=== PATIENT | male | born 1965 | race Caucasian/White ===

== ENCOUNTER 2016-09-05 18:50 | Emergency (ER) | payer SELFPAY ==
--- NOTE | 2016-09-05 19:16 | Emergency Department Record ---
History of Present Illness - General Chief Complaint: Alcohol Intoxication Stated Complaint: ETOH Time Seen by Provider: 09/05/16 19:08 Source: Patient, Police Mode of Arrival: EMS Limitations: No limitations - History of Present Illness Initial Comments: 51 yo male presents in law enforcement custody. He was pulled over for suspected drinking and driving. Upon arrest the patient states for the last few hours he has not felt normal beyond the alcohol. He states he feels out of it. No new vision changes, no weakness on one side or the other. No fevers. No trauma. No sweating. He is under a lot of stress at home. He reports a history of prior stroke and HTN. The stroke involved his vision. No vision changes today. He admits to drinking. He has had a cough for about 2 weeks. Productive at times. MD Complaint: Alcohol intoxication Last Drink: Unknown Chronic Alcohol Use: Yes Recent Trauma: No Associated Symptoms: Denies other symptoms Treatments Prior to Arrival: None - Kermit Coma Scale Eye Response: (4) Open spontaneously Motor Response: (6) Obeys commands Verbal Response: (5) Oriented Kermit Total: 15 - Related Data Home Medications Medication Instructions Recorded Confirmed Last Taken Metoprolol Tartrate [Metoprolol 50 mg PO BID 10/25/15 09/05/16 10/25/15 Tartrate] Gabapentin [Neurontin] 300 mg PO DAILY 11/04/15 09/05/16 Unknown Meloxicam [Mobic] 15 mg PO BID 11/04/15 09/05/16 Unknown Allergies Allergy/AdvReac Type Severity Reaction Status Date / Time No Known Drug Allergies Allergy Verified 09/05/16 18:56 Travel Screening - Travel/Exposure Within Last 30 Days Have you traveled within the last 30 days?: No Review of Systems Constitutional: Denies: Chills, Fever, Malaise, Night sweats, Weakness Eyes: Denies: Eye discharge, Eye pain, Photophobia, Vision change ENT: Denies: Congestion, Throat pain Respiratory: Reports: Cough (few weeks). Denies: Dyspnea, Hemoptysis, Stridor, Wheezes Cardiovascular: Denies: Chest pain, Palpitations, Syncope Endocrine: Denies: Fatigue Gastrointestinal: Denies: Abdominal pain, Diarrhea, Hematemesis, Hematochezia, Nausea, Vomiting Genitourinary: Denies: Dysuria, Frequency, Hematuria, Urgency Musculoskeletal: Denies: Arthralgia, Back pain, Joint swelling, Myalgia, Neck pain Skin: Denies: Bruising, Change in color, Rash Neurological: Denies: Confusion, Headache, Numbness, Tingling, Tremors, Vertigo , Weakness Psychiatric: Reports: Anxiety Hematological/Lymphatic: Denies: Blood Clots, Easy bleeding, Easy bruising, Swollen glands Past Medical History - SOCIAL HISTORY Smoking Status: Current every day smoker Alcohol Use: Heavy Drug Use: None - RESPIRATORY Hx Respiratory Disorders: Yes Hx COPD: Yes - CARDIOVASCULAR Hx Cardio Disorders: Yes Hx Hypertension: Yes - NEURO Hx Neuro Disorders: No - GI Hx GI Disorders: No - Hx Genitourinary Disorders: No - ENDOCRINE Hx Endocrine Disorders: No - MUSCULOSKELETAL Hx Musculoskeletal Disorders: Yes Comment:: neck pain - PSYCH Hx Psych Problems: No - HEMATOLOGY/ONCOLOGY Hx Hematology/Oncology Disorders: No Family Medical History Any Significant Family History?: Yes Family Hx Comment (NOT TO BE USED IN PLACE OF ITEMS BELOW): Father- Aneurysm Hx Diabetes: Mother Hx Heart Disease: Father Physical Exam - General General Appearance: Alert, Oriented x3, Cooperative, No acute distress Limitations: No limitations - Head Head exam: Atraumatic, Normal inspection - Eye Eye exam: Normal appearance, PERRL. negative: Conjunctival injection, Periorbital swelling - ENT ENT exam: Normal exam, Mucous membranes moist Ear exam: Normal external inspection Nasal Exam: Normal inspection Mouth exam: Normal external inspection Teeth exam: Normal inspection Throat exam: Normal inspection - Neck Neck exam: Normal inspection, Full ROM. negative: Tenderness - Respiratory Respiratory exam: Normal lung sounds bilaterally. negative: Accessory muscle use, Respiratory distress, Rhonchi, Stridor, Wheezes - Cardiovascular Cardiovascular Exam: Regular rate, Normal rhythm, Normal heart sounds - GI/Abdominal GI/Abdominal exam: Soft. negative: Distended, Guarding, Tenderness - Rectal Rectal exam: Deferred - exam: Deferred - Extremities Extremities exam: Normal inspection, Full ROM, Normal capillary refill. negative: Pedal edema, Tenderness - Back Back exam: Reports: Normal inspection, Full ROM. Denies: Muscle spasm, Rash noted, Tenderness - Neurological Neurological exam: Alert, CN II-XII intact, Normal gait, Oriented X3, Reflexes normal. negative: Altered, Motor sensory deficit - Psychiatric Psychiatric exam: Normal affect, Normal mood - Skin Skin exam: Dry, Intact, Normal color, Warm Course Vital Signs 09/05/16 18:52 Temperature 98.6 F Pulse Rate 112 H Respiratory 20 Rate Blood Pressure 118/86 Pulse Ox 96 - Reevaluation(s) Reevaluation #1: the results were reviewed the alcohol was 0.29 about 2 hours prior no other acute changes the patient is stable for DC into custody His questions were answered he is cooperative and appropriate he is alert, no confusion, no other complaints or concerns 09/05/16 21:13 09/05/16 23:48 Medical Decision Making - Lab Data Result diagrams: 09/05/16 19:30 09/05/16 19:30 Disposition Disposition: Discharge Clinical Impression: Alcohol intoxication Qualifiers: Complication of substance-induced condition: uncomplicated Qualified Code(s): F10.920 - Alcohol use, unspecified with intoxication, uncomplicated Disposition: Home, Self-Care Condition: (1) Good Instructions: Alcohol Intoxication (ED) Additional Instructions: Avoid excessive alcohol ingestion Return if any concerns or symptoms Forms: Patient Portal Access Time of Disposition: 21:15
[2016-09-05 19:43] LABS: BASO % 0.6 % (0-6); EOS % 2.2 % (0-6); GRAN % 44.3 % (47-80); HEMATOCRIT 49.4 % (42.0-52.0); HEMOGLOBIN 16.9 gm/dl (14.0-18.0); LYMPH % 40.5 % (16-45); MEAN CELL VOLUME 96.9 fl (81-97); MEAN CORPUSCULAR HEMOGLOBIN 33.1 pg (27-33); MEAN CORPUSCULAR HGB CONC 34.2 g/dl (32-36); MEAN PLATELET VOLUME 9.6 fl (7.4-10.4); MONO % 12.4 % (0-9); PLATELET COUNT 155 K/uL (130-400); RED CELL DISTRIBUTION WIDTH 14.4 % (11.5-14.5); WHITE BLOOD COUNT W/O DIFF 4.9 K/uL (4.2-12.2)
[2016-09-05 19:51] LABS: ALB/GLOB RATIO 1.5 (1.1-1.8); ALBUMIN 4.4 gm/dL (3.5-5.0); ALKALINE PHOSPHATASE 71 U/L (38-126); ALT/SGPT 27 U/L (21-72); ANION GAP 11.1 (7-16); AST/SGOT 41 U/L (17-59); BILIRUBIN,TOTAL 0.47 mg/dL (0.2-1.3); BLOOD UREA NITROGEN 7 mg/dL (9-20); CARBON DIOXIDE 23.9 mmol/L (22-30); CREATININE 0.8 mg/dL (0.66-1.25); EST GLOMERULAR FILTRATION RATE > 60 ml/min; GLUCOSE,RANDOM 107 mg/dL (70-110); TOTAL PROTEIN 7.3 gm/dL (6.3-8.2)
[2016-09-05 20:16] LABS: ACETAMINOPHEN < 10.0 ug/mL (10.0-30.0); SALICYLATE < 1.0 mg/dL (2.8-20.0)
[2016-09-05 20:23] LABS: THYROID STIMULATING HORMONE 1.82 uIU/ml (0.465-4.68)
[2016-09-05 21:09] LABS: ALCOHOL 0.296 g/dL (0-0.010)
== END 2016-09-05 21:29 | disposition home or self-care (01) ==
LOC: ER 18:50
DX: F10.129 Alcohol abuse with intoxication, unspecified (principal); Y90.8 Blood alcohol level of 240 mg/100 ml or more; R05 Cough; I10 Essential (primary) hypertension; F17.210 Nicotine dependence, cigarettes, uncomplicated
CPT/HCPCS: 99283 ×2; 85025; 80053; 84443; G0480 ×3; 80320; 80329